=== PATIENT | female | born 1980 | race Caucasian/White ===

== ENCOUNTER 2016-08-06 09:38 | Emergency (ER) | payer OTHER ==
[~2016-08-06] VITALS: Ht 165.1 cm; Wt 104.3 kg
[2016-08-06] MEDS ORDERED: CELE40TA PO (09:52)
[2016-08-06] MEDS ORDERED: ONDANSETRON 4MG/2ML VIAL (J2405) IV ONE ×2 (10:15→12:00)
[2016-08-06] MEDS ORDERED: KETOROLAC 30 MG/ML VIAL (J1885) IV ONE (10:15)
[2016-08-06] MEDS ORDERED: NS 1,000 ML IV ONE (10:15)
[2016-08-06] MEDS: MORPHINE 4 MG/ML 1ML SYRINGE IV PRN ×2 (10:26→11:33)
[2016-08-06 10:41] LABS: BASO % 0.3 % (0.0-1.0); EOS # 0.1 K/mm3 (0.0-0.50); EOS % 2.2 % (0.0-3.0); LARGE UNSTAINED CELL # 0.1 K/mm3 (0.0-0.4); LARGE UNSTAINED CELL % 1.1 % (0.0-4.0); LYMPH # 1.3 K/mm3 (1.5-4.5); LYMPH % 18.3 % (24.0-44.0); MEAN CORPUSCULAR HEMOGLOBIN 27.3 pg (27.0-33.0); MEAN CORPUSCULAR HGB CONC 32.1 g/dl (32.0-36.5); MEAN CORPUSCULAR VOLUME 84.9 fl (80.0-96.0); MONO # 0.2 K/mm3 (0.0-0.8); MONO % 3.7 % (0.0-5.0); NEUTROPHILS # 4.8 K/mm3 (1.8-7.7); NEUTROPHILS % 74.3 % (36.0-66.0); PLATELET COUNT, AUTOMATED 259 k/mm3 (150-450); RED CELL DISTRIBUTION WIDTH 14.8 % (11.5-14.5); WHITE BLOOD COUNT 6.4 K/mm3 (4.0-10.0)
[2016-08-06 10:57] LABS: ALBUMIN 3.5 GM/DL (3.2-5.2); ALBUMIN/GLOBULIN RATIO 0.92 (1.00-1.93); ALKALINE PHOSPHATASE 79 U/L (45-117); ALT/SGPT 17 U/L (12-78); ANION GAP 8 MEQ/L (8-16); AST/SGOT 13 U/L (15-37); BILIRUBIN,DIRECT < 0.1 MG/DL (0.0-0.2); BILIRUBIN,TOTAL 0.3 MG/DL (0.2-1.0); BLOOD UREA NITROGEN 10 MG/DL (7-18); CALCIUM LEVEL 8.6 MG/DL (8.5-10.1); CARBON DIOXIDE LEVEL 27 MEQ/L (21-32); CHLORIDE LEVEL 103 MEQ/L (98-107); CREATININE FOR GFR 0.91 MG/DL (0.55-1.02); GLOMERULAR FILTRATION RATE > 60.0 (>60); GLUCOSE, FASTING 129 MG/DL (70-105); POTASSIUM SERUM 4.1 MEQ/L (3.5-5.1); SODIUM LEVEL 138 MEQ/L (136-145); TOTAL PROTEIN 7.3 GM/DL (6.4-8.2)
[2016-08-06] MEDS ORDERED: HYDROmorphone HCL 1 MG/ML SYRINGE (J1170) IV ONE (11:30)
--- NOTE | 2016-08-06 13:00 | REP ---
Paracentral CT abdomen pelvis without IV and oral contrast: There are no comparisons. There is a 4 mm calcification at the distal tip of the left ureter at its junction with the urinary bladder. There is left hydroureter and hydronephrosis. There are no right renal or ureteral calculi. No right hydronephrosis. There are no bladder calculi. There is an IUD in the uterus. The graft the visualized lung lara are unremarkable. The unenhanced hepatic parenchyma, gallbladder, pancreas, spleen, adrenals, abdominal aorta, bowel and mesentery are unremarkable. Pelvis: The appendix is unremarkable. There is no ascites or adenopathy. The pelvic bowel loops are unremarkable. There is an IUD in the uterus. Impression: There is a 4 mm calculus in the distal tip of a left ureter at its junction with the urinary bladder. There is left hydronephrosis. Signed by Shane White MD 08/06/2016 12:51 P
[2016-08-06] MEDS ORDERED: PERCOCET 5MG/325MG TAB PO ONE (13:45)
[2016-08-06] MEDS ORDERED: ZOFR4TAB3 PO (14:29)
[2016-08-06] MEDS ORDERED: FLOM5CAP PO (14:29)
[2016-08-06] MEDS ORDERED: PERC5TAB6 PO (14:29)
[2016-08-06 14:30] VITALS: BP 123/69
== END 2016-08-06 14:35 | disposition home or self-care (01) ==
LOC: M ED 10:29
DX: N20.1 Calculus of ureter (principal); N13.30 Unspecified hydronephrosis; Z87.442 Personal history of urinary calculi; Z79.899 Other long term (current) drug therapy; Z88.8 Allergy status to other drugs, medicaments and biological substances
CPT/HCPCS: 74176; 80048; 80076; 83690; 84702; 85025; 96361; 96374; 96375; 96376; 99283; J1170; J1885; J2405

== ENCOUNTER → 2018-10-28 | Outpatient (CLI) | payer OTHER ==
[~2018-10-28] MED LIST: CELE40TA PO; FLOM0.4C39 PO; PERC5TAB12 PO; ZOFR4TAB14 PO
--- NOTE | 2018-10-29 07:04 | REP ---
CHEST, TWO VIEWS: There is no evidence of acute infiltrate. No pleural effusion is seen. The heart is normal in size. The mediastinal silhouette is unremarkable. The visualized osseous structures are intact. IMPRESSION: No acute pulmonary disease. Electronically Signed by Shane Aguero MD 10/30/2018 11:38 A
== END ==
LOC: M LRY 18:38
PROVIDERS: ATTEND Nurse Practitioner Family
DX: R06.09 Other forms of dyspnea (principal)
CPT/HCPCS: 71046; 94640; G0463

== ENCOUNTER → 2020-03-18 | Outpatient (REF) | payer OTHER ==
[2020-03-18 17:26] LABS: APPEARANCE, URINE CLOUDY (CLEAR); BACTERIA, URINE AUTO 1+ (NEGATIVE); BILIRUBIN, URINE AUTO NEGATIVE (NEGATIVE); BLOOD, URINE BLOOD 2+ (NEGATIVE); COLOR, URINE YELLOW (YELLOW); GLUCOSE, URINE (UA) AUTO NEGATIVE (NEGATIVE); KETONE, URINE AUTO NEGATIVE (NEGATIVE); LEUKOCYTE ESTERASE, URINE AUTO TRACE (NEGATIVE); MUCUS, URINE SMALL (NEGATIVE); NITRITE, URINE AUTO NEGATIVE (NEGATIVE); PROTEIN, URINE AUTO 1+ mg/dL (NEGATIVE); RBC, URINE AUTO 4 /HPF (0-3); SPECIFIC GRAVITY URINE AUTO 1.023 (1.002-1.035); SQUAMOUS EPITHELIAL CELL UR AU 19 /HPF (0-6); UROBILINOGEN, URINE AUTO 0.2 mg/dL (0.0-2.0); WBC, URINE AUTO 21 /HPF (0-3)
[2020-03-18 17:39] LABS: CPK CREATINE PHOSPHOKINASE 66 U/L (26-192); IRON (FE) 45 UG/DL (50-170); MAGNESIUM LEVEL 2.2 MG/DL (1.8-2.4); PHOSPHORUS LEVEL 3.4 MG/DL (2.5-4.9)
[2020-03-18 17:47] LABS: TOTAL 25(OH) VITAMIN D 8.3 NG/ML (30.0-100.0)
[2020-03-18 17:48] LABS: VITAMIN B12 LEVEL 498 PG/ML (247-911)
== END ==
LOC: M SFHCRHEU 15:36
PROVIDERS: ATTEND Internal Medicine
DX: H04.123 Dry eye syndrome of bilateral lacrimal glands (principal); H15.091 Other scleritis, right eye; M79.10 Myalgia, unspecified site; R70.0 Elevated erythrocyte sedimentation rate

== ENCOUNTER → 2020-05-02 | Outpatient (REF) | payer OTHER ==
[2020-05-02 18:43] LABS: APPEARANCE, URINE HAZY (CLEAR); BACTERIA, URINE AUTO NEGATIVE (NEGATIVE); BILIRUBIN, URINE AUTO NEGATIVE (NEGATIVE); BLOOD, URINE BLOOD NEGATIVE (NEGATIVE); COLOR, URINE YELLOW (YELLOW); GLUCOSE, URINE (UA) AUTO NEGATIVE (NEGATIVE); KETONE, URINE AUTO NEGATIVE (NEGATIVE); LEUKOCYTE ESTERASE, URINE AUTO NEGATIVE (NEGATIVE); NITRITE, URINE AUTO NEGATIVE (NEGATIVE); PROTEIN, URINE AUTO NEGATIVE (NEGATIVE); RBC, URINE AUTO 1 /HPF (0-3); SQUAMOUS EPITHELIAL CELL UR AU 1 /HPF (0-6); UROBILINOGEN, URINE AUTO 0.2 mg/dL (0.0-2.0); WBC, URINE AUTO 1 /HPF (0-3)
== END ==
LOC: M SFHCRHEU 14:41
PROVIDERS: ATTEND Internal Medicine
DX: R31.9 Hematuria, unspecified (principal)

== ENCOUNTER → 2020-06-15 | Outpatient (CLI) | payer OTHER ==
--- NOTE | 2020-06-16 12:30 | REP ---
INDICATION: ABNORMAL XRAY OF PELVIS. COMPARISON: [facility] 03/30/2020. TECHNIQUE: Multiple sequences obtained in the axial, coronal and sagittal planes. FINDINGS: There is no evidence of bone marrow edema or occult fracture. There is a small low signal benign bone island in the right femoral head measuring approximately 1 cm in diameter. There is no edema at the sacroiliac joints, with no evidence of sacroiliitis. Minimal ill-defined high signal is seen on T2 weighted images in the soft tissues along the greater trochanters bilaterally, suggesting very mild bilateral greater trochanteric tendonobursitis. Within the pelvis the uterus is deviated to the left of midline. Uterine length is approximately 7.5 cm. Multiple small fibroids are seen throughout the myometrium. Largest are posteriorly in the left fundus measuring about 1.6 cm in maximum diameter, and in the right anterior uterine body 1.8 cm in maximum diameter. IUD is seen in the endometrial canal. Adjacent to the anterior fundus of the uterus the left ovary demonstrates a cyst which measures approximately 4 cm in maximum diameter. There is trace free fluid in the pelvis likely physiologic in nature. Otherwise no mass or adenopathy is seen in the pelvis.. IMPRESSION: No significant osseous abnormality. Benign bone island right femoral head. There are findings suggesting very mild bilateral greater trochanteric tendonobursitis. Fibroid uterus. IUD located in the endometrial canal. Left ovarian cyst 4 cm in diameter with trace free fluid in the pelvis. <Electronically signed by Shane Aguero > 06/16/20 [id number]
== END ==
LOC: M PLARAD 11:27 → M RAD 12:03
PROVIDERS: ATTEND Internal Medicine
DX: D25.9 Leiomyoma of uterus, unspecified (principal); N83.202 Unspecified ovarian cyst, left side; R93.7 Abnormal findings on diagnostic imaging of other parts of musculoskeletal system; Z97.5 Presence of (intrauterine) contraceptive device

== ENCOUNTER → 2020-09-09 | Outpatient (REF) | payer OTHER ==
[2020-09-09 17:55] LABS: TOTAL 25(OH) VITAMIN D 30.6 NG/ML (30.0-100.0)
== END ==
LOC: M SFHCRHEU 11:30
PROVIDERS: ATTEND Internal Medicine
DX: E61.1 Iron deficiency (principal); E55.9 Vitamin D deficiency, unspecified

== ENCOUNTER → 2021-03-06 | Outpatient (CLI) | payer OTHER ==
[~2021-03-06] MED LIST changes: +PROHANCE 279.3MG/ML 15ML VIAL As Ordered ONE; +PROHANCE 279.3MG/ML 5ML VIAL As Ordered ONE
--- NOTE | 2021-03-06 09:19 | REPVR ---
PROCEDURE INFORMATION: Exam: CT Maxillofacial Without Contrast Exam date and time: 03/06/2021 8:47 AM Age: 41 years old Clinical indication: Sinusitis; Type not specified TECHNIQUE: Imaging protocol: Computed tomography images of the face without contrast. Radiation optimization: All CT scans at this facility use at least one of these dose optimization techniques: automated exposure control; mA and/or kV adjustment per patient size (includes targeted exams where dose is matched to clinical indication); or iterative reconstruction. COMPARISON: No relevant prior studies available. FINDINGS: Orbital cavity: Examination reveals bilateral globes to be normal in size and morphology. The optic nerves are normal in thickness and symmetric bilaterally. The extraocular muscles are normal in thickness . The retroconal fat has a normal appearance. The lacrimal glands appear normal bilaterally. Bones/joints: There is mild deviation of the nasal septum towards the left with a prominent intranasal bony spur. The bony orbital guaman are intact. No fractures are identified. Paranasal sinuses: Mild mucosal thickening is seen in the paranasal sinuses. No air-fluid levels are seen to suggest acute sinusitis. The ostiomeatal complexes are patent. Mastoid air cells: The visualized mastoid air cells are clear. Soft tissues: Unremarkable. Brain: The visualized brain parenchyma is unremarkable. IMPRESSION: 1. Mild mucosal thickening is seen in the paranasal sinuses. No air-fluid levels are seen to suggest acute sinusitis. The ostiomeatal complexes are patent. 2. There is mild deviation of the nasal septum towards the left with a prominent intranasal bony spur. Electronically signed by: Jermaine Avina On 03/06/2021 09:18:39 AM
== END ==
LOC: M RAD 07:41
PROVIDERS: ATTEND Family Medicine
DX: J32.9 Chronic sinusitis, unspecified (principal); J34.2 Deviated nasal septum

== ENCOUNTER → 2021-03-06 | Outpatient (CLI) | payer OTHER ==
[~2021-03-06] MED LIST changes: -PROHANCE 279.3MG/ML 15ML VIAL As Ordered ONE; -PROHANCE 279.3MG/ML 5ML VIAL As Ordered ONE
--- NOTE | 2021-03-06 10:49 | REP ---
INDICATION: FAM HX OF PANCREATIC CA, ABN ERCP HAS CT AFTER MRI. COMPARISON: None. TECHNIQUE: Pre and post contrast 3T MRI of the pancreas was performed utilizing various sequences. Gadolinium utilized: 20 cc ProHance FINDINGS: There is no evidence of a pancreatic mass, ductal dilatation, or abnormal enhancement. There is no peripancreatic lymphadenopathy. There is no abnormal fluid in the abdomen or retroperitoneum. No abnormal fluid is seen in the pararenal spaces. There is no evidence of common bile duct dilatation. In the posterior segment of the right lower liver there is a 1.3 cm sized focal area of T2 hyper signal and enhancement. The enhancement pattern appears peripheral nodular and the T1 weighted sequence shows T1 prolongation. The spleen, adrenal glands, and kidneys are within normal limits. The gallbladder is within normal limits. There is no para-aortic adenopathy. The cortical and marrow signal seen throughout the osseous structures is within normal limits. IMPRESSION: 1. There is no evidence of a pancreatic abnormality. Findings as described above. 2. Probable benign appearing hepatic hemangioma as described above. This examination was not protocoled or performed specifically for the liver. Consider right upper quadrant ultrasound. <Electronically signed by Rashawn Farfan > 03/06/21 [id number]
== END ==
LOC: M RAD 07:35
PROVIDERS: ATTEND Physician Assistant Medical
DX: R93.3 Abnormal findings on diagnostic imaging of other parts of digestive tract (principal); Z80.0 Family history of malignant neoplasm of digestive organs; K76.89 Other specified diseases of liver; J32.9 Chronic sinusitis, unspecified; J34.2 Deviated nasal septum
CPT/HCPCS: 70486; 74183; A9576